=== PATIENT | female | born 1985 | race Two or more races ===

== ENCOUNTER 2017-01-19 11:15 | Emergency (ER) | payer SELFPAY ==
[~2017-01-19] VITALS: Ht 165.1 cm; Wt 62.6 kg
[2017-01-19] MEDS ORDERED: PRENATAL 19 TA1 EAC1 PO (11:43)
[2017-01-19 11:45] VITALS: BP 120/77
--- NOTE | 2017-01-19 11:53 | Emergency Room Report ---
History of Present Illness General Chief Complaint: Abdominal Pain Source: Patient Present Illness HPI The patient presents with right flank pain. Started on Tuesday when she woke up. The pain did not wake her up. She's not take any medication for this. 10 years ago she was seen for similar type pain and had a kidney infection at that time. She denies any fevers or chills. The patient is breast-feeding her child who is 6 months old. Her first period after delivery was January 06 and slightly light out. She denies any dysuria. There's no nausea vomiting or diarrhea. She denies strain of muscles (although lifting child and R handed). Pain 4/10, worse when up and moving, better when supine. No meds taken. There is some nausea associated with this. No rashes, calf tenderness, change in bowels, rashes, headache, joint pain. Seen by her PMD and sent here for CT scan. Allergies: Coded Allergies: No Known Allergies (Unverified , 01/19/17) Patient History Past Medical History: see triage record Social History: Denies: alcohol use, drug use, smoking Social History Narrative 6 month old son at home Last Menstrual Period: 01/06/2017 Now: No : 1 Para: 1 Reviewed Nursing Documentation: PMH: Agreed, PSxH: Agreed Nursing Documentation-PMH Past Medical History: No Stated History Review of Systems All Other Systems: negative except mentioned in HPI Physical Exam Vital Signs Date Time Temp Pulse Resp B/P Pulse Ox O2 Delivery O2 Flow Rate FiO2 01/19/17 11:38 97.9 67 16 120/77 97 Room Air Sp02 EP Interpretation: reviewed, normal General Appearance: well appearing, no apparent distress, GCS 15 Head: normocephalic Eyes: bilateral eye PERRL, bilateral eye normal inspection ENT: moist mucus membranes Neck: supple Respiratory: lungs clear, normal breath sounds Cardiovascular #1: regular rate, rhythm Cardiovascular #2: 2+ radial (R) Gastrointestinal: normal inspection, normal bowel sounds, non tender, no mass, non-distended Genitourinary: CVA tenderness (R) Musculoskeletal: back normal - though see CVA, gait/station normal, normal range of motion Neurologic: alert, oriented x3, grossly normal Psychiatric: mood/affect normal Skin: normal inspection, no rash, warm/dry Medical Decision Making Diagnostic Impression: Primary Impression: Flank pain Additional Impression: Normal breast feeding Ruled Out: Pyelonephritis ER Course Patient presents with R flank pain worsened since weekend. DDx: stone, pyelo, UTI, strain amongst others. Evaluation with labs and UA. PMD requested CT. Patient given tylenol. After oral contrast, c/w nausea. Zofran ordered. Improved with zofran. Pain also improved. Labs and CT unremarkable (hydronephrosis with full bladder). Discussed CT with patient. Patient improved and stable for outpatient observation and treatment. Laboratory Tests Test 01/19/17 11:55 White Blood Count 9.8 K/UL (4.8-10.8) Red Blood Count 4.84 M/UL (4.20-5.40) Hemoglobin 14.7 G/DL (12.0-16.0) Hematocrit 44.3 % (37.0-47.0) Mean Corpuscular Volume 92 FL (80-99) Mean Corpuscular Hemoglobin 30.4 PG (27.0-31.0) Mean Corpuscular Hemoglobin Concent 33.2 G/DL (32.0-36.0) Red Cell Distribution Width 12.8 % (11.6-14.8) Platelet Count 398 K/UL (150-450) Mean Platelet Volume 5.7 FL (6.5-10.1) L Neutrophils (%) (Auto) 68.0 % (45.0-75.0) Lymphocytes (%) (Auto) 23.7 % (20.0-45.0) Monocytes (%) (Auto) 5.5 % (1.0-10.0) Eosinophils (%) (Auto) 1.8 % (0.0-3.0) Basophils (%) (Auto) 1.0 % (0.0-2.0) Urine Color Pale yellow Urine Appearance Slightly cloudy Urine pH 6 (4.5-8.0) Urine Specific [place] 1.015 (1.005-1.035) Urine Protein Negative (NEGATIVE) Urine Glucose (UA) Negative (NEGATIVE) Urine Ketones Negative (NEGATIVE) Urine Occult Blood 1+ (NEGATIVE) H Urine Nitrite Negative (NEGATIVE) Urine Bilirubin Negative (NEGATIVE) Urine Urobilinogen Normal MG/DL (0.0-1.0) Urine Leukocyte Esterase 1+ (NEGATIVE) H Urine RBC 2-4 /HPF (0 - 2) H Urine WBC 2-4 /HPF (0 - 2) Urine Squamous Epithelial Cells Moderate /LPF (NONE/OCC) H Urine Bacteria Few /HPF (NONE) Urine HCG, Qualitative Negative Sodium Level 140 mEQ/L (135-145) Potassium Level 4.5 mEQ/L (3.4-4.9) Chloride Level 99 mEQ/L (98-107) Carbon Dioxide Level 27 mEQ/L (20-30) Anion Gap 14 (5-15) Blood Urea Nitrogen 12 mg/dL (7-23) Creatinine 0.7 mg/dL (0.5-0.9) Estimate Glomerular Filtration Rate > 60 mL/min (>60) Glucose Level 82 mg/dL (74-106) Calcium Level 9.8 mg/dL (8.6-10.2) Total Bilirubin 0.5 mg/dL (0.0-1.2) Aspartate Amino Transferase (AST) 14 U/L (5-40) Alanine Aminotransferase (ALT) 10 U/L (3-33) Alkaline Phosphatase 80 U/L (35-104) Total Protein 7.8 g/dL (6.6-8.7) Albumin 4.7 g/dL (3.5-5.2) Globulin 3.1 g/dL Albumin/Globulin Ratio 1.5 (1.0-2.7) Lipase 24 U/L (< 60) CT/MRI/US Diagnostic Results CT/MRI/US Diagnostic Results : Imaging Test Ordered: abd pelvis Impression Impression: Distended urinary bladder with mild bilateral hydronephrosis. Last Vital Signs Date Time Temp Pulse Resp B/P Pulse Ox O2 Delivery O2 Flow Rate FiO2 01/19/17 15:04 97.8 64 16 121/79 97 Room Air Status: improved Disposition: HOME, SELF-CARE Condition: Improved Scripts Acetaminophen (Tylenol) 325 Mg Tablet 650 MG ORAL Q6H Y for Prn Pain/Headache/Temp > 101, #30 TAB 0 Refills Prov: Jessee Araujo M.D. 01/19/17 Ibuprofen* (MOTRIN*) 600 Mg Tablet 600 MG ORAL Q6H Y for For Pain, #16 TAB Prov: Jessee Araujo M.D. 01/19/17 Ondansetron Odt* (ZOFRAN ODT*) 4 Mg Tab.rapdis 4 MG ORAL Q6H Y for Nausea & Vomiting, #6 TAB 1 Refill Prov: Jessee Araujo M.D. 01/19/17 Referrals: NOT CHOSEN [facility]/,REFERRING (PCP) Jessee Araujo M.D. January 19, 2017 11:53
[2017-01-19 12:06] LABS: EOSINOPHILS % (AUTO) 1.8 % (0.0-3.0); LYMPHOCYTES % (AUTO) 23.7 % (20.0-45.0); MEAN CORPUSCULAR HEMOGLOBIN 30.4 PG (27.0-31.0); MEAN CORPUSCULAR HGB CONC 33.2 G/DL (32.0-36.0); MEAN CORPUSCULAR VOLUME 92 FL (80-99); MEAN PLATELET VOLUME 5.7 FL (6.5-10.1); MONOCYTES % (AUTO) 5.5 % (1.0-10.0); PLATELET COUNT 398 K/UL (150-450); RED BLOOD COUNT 4.84 M/UL (4.20-5.40); RED CELL DISTRIBUTION WIDTH 12.8 % (11.6-14.8); WHITE BLOOD COUNT 9.8 K/UL (4.8-10.8)
[2017-01-19 12:11] LABS: APPEARANCE,URINE SLIGHTLY CLOUDY; KETONES,URINE NEGATIVE (NEGATIVE); LEUKOCYTE ESTERASE ,URINE 1+ (NEGATIVE); NITRITE,URINE NEGATIVE (NEGATIVE); PH,URINE 6 (4.5-8.0); PROTEIN,URINE NEGATIVE (NEGATIVE); UROBILINOGEN,URINE NORMAL MG/DL (0.0-1.0)
[2017-01-19 12:25] LABS: ALANINE AMINOTRANSFERASE 10 U/L (3-33); ALBUMIN/GLOBULIN RATIO 1.5 (1.0-2.7); ANION GAP 14 (5-15); ASPARTATE AMINO TRANSFERASE 14 U/L (5-40); CALCIUM 9.8 mg/dL (8.6-10.2); CARBON DIOXIDE 27 mEQ/L (20-30); CHLORIDE 99 mEQ/L (98-107); CREATININE 0.7 mg/dL (0.5-0.9); GLOMERULAR FILTRATION RATE > 60 mL/min (>60); HEMOLYSIS 7; LIPASE 24 U/L (< 60); POTASSIUM 4.5 mEQ/L (3.4-4.9); SODIUM 140 mEQ/L (135-145); TOTAL PROTEIN 7.8 g/dL (6.6-8.7)
[2017-01-19 12:33] LABS: BACTERIA,URINE FEW /HPF; SQUAMOUS EPITHELIAL CELL,UR MODERATE /LPF (NONE/OCC)
[2017-01-19 14:13] VITALS: BP 127/81
--- NOTE | 2017-01-19 14:19 | Diagnostic Imaging Report ---
Indication: Abdominal pain Technique: Continuous helical transaxial imaging of the abdomen and pelvis was obtained from the lung bases to the pubic symphysis during intravenous contrast administration. Coronal 2-D reformats were also obtained. Study obtained in a Siemens sensation [address] Total Dose length Product (DLP): [address] Dose Index Volume (CTDIvol): 16 mGy Comparison: None Findings: The lung bases are clear. Appendix is normal. Urinary bladder is mildly distended. There is mild bilateral hydroureter probably on the basis of the distended urinary bladder. Uterus and ovaries are unremarkable. There is no free fluid or free air or evidence of bowel obstruction. The liver, spleen, gallbladder pancreas, both kidneys and adrenal glands are unremarkable. Impression: Distended urinary bladder with mild bilateral hydronephrosis. Exam otherwise The CT scanner at [facility] is accredited by the [employer] and the scans are performed using dose optimization techniques as appropriate to a performed exam including Automatic Exposure control.
[2017-01-19] MEDS ORDERED: IBUPROFEN600 MG ORAL (14:51)
[2017-01-19] MEDS ORDERED: ZOFRAN ODT4 MG ORAL (14:51)
[2017-01-19] MEDS ORDERED: TYLENOL325 MG ORAL (14:51)
[2017-01-19 15:04] VITALS: BP 121/79
== END 2017-01-19 15:06 | disposition home or self-care (01) ==
LOC: EMR 11:51
DX: R10.9 Unspecified abdominal pain (principal); N12 Tubulo-interstitial nephritis, not specified as acute or chronic
CPT/HCPCS: 36415; 74177; 80053; 81003; 81025; 83690; 85025; 96360; 96361; 96374; 99284; J2405; Q9967